=== PATIENT | female | born 1960 | race Caucasian/White ===

== ENCOUNTER 2016-06-10 12:41 | Emergency (ER) | payer BC ==
[2016-06-10 13:35] LABS: BASOPHILS 0.5 % (0.0-2.0); EOSINOPHILS 1.8 % (0-7); HEMATOCRIT 39.7 % (36.0-48.0); HEMOGLOBIN 13.5 g/dL (12-16); IMMATURE GRANULOCYTES 0.2 % (0-5); LYMPHOCYTES 25.1 % (15-50); MCH 30.8 pg (26.0-34.0); MCV 90.6 fL (80.0-100.0); MONOCYTES 6.6 % (2-11); NEUTROPHILS 65.8 % (40-80); PLATELET COUNT 312 10x3/uL (130-400); RBC 4.38 10x6/uL (4.00-5.40); RDW 12.7 % (11.5-14.5); WBC 6.1 10x3/uL (4.8-10.8)
[2016-06-10 13:40] LABS: ALBUMIN 3.7 g/dL (3.4-5.0); ALKALINE PHOSPHATASE 62 U/L (46-116); ALT (SGPT) 25 U/L (10-68); BILIRUBIN - TOTAL 0.45 mg/dL (0.2-1.3); CALC OSMOLALITY 288 mosm/kg (275-300); CALCIUM 9.1 mg/dL (8.5-10.1); CHLORIDE - SERUM 105 mmol/L (98-107); CREATININE - SERUM 0.9 mg/dL (0.6-1.3); GLUCOSE 106 mg/dL (74-106); PROTEIN - SERUM 6.8 g/dL (6.4-8.2); SODIUM 142 mmol/L (136-145); UREA NITROGEN 29 mg/dL (7-18); eGFR NON AFRICAN AMERICAN 69 mL/min (90-120)
[2016-06-10 13:51] LABS: CHOL - HDL RATIO 2.6 ratio (2.3-4.1); CHOLESTEROL, TOTAL 208 mg/dL (0-200); CKMB 0.8 U/L (0.0-3.6); CREATINE KINASE 69 UL (21-215); HDL CHOLESTEROL 80 mg/dL (32-96); LDL CHOLESTEROL 111 mg/dL (0-100); LDL-HDL RATIO 1.4 ratio (1.5-3.5); TRIGLYCERIDE 85 mg/dL (30-200)
[2016-06-10 13:52] LABS: TROPONIN-I < 0.017 ng/mL (0.000-0.060)
== END 2016-06-10 14:44 | disposition home or self-care (01) ==
LOC: D.ER 12:41
PROVIDERS: Emergency Medicine
DX: R00.2 Palpitations (principal); I45.10 Unspecified right bundle-branch block; I44.60 Unspecified fascicular block

== ENCOUNTER → 2016-09-16 16:43 | Outpatient (CLI) | payer MEDICAID | END | disposition home or self-care (01) | LOC: D.MAMMO 08:15 | DX: Z12.31 Encounter for screening mammogram for malignant neoplasm of breast (principal) ==

== ENCOUNTER 2017-10-30 08:00 | Outpatient (CLI) | payer MEDICAID | END 2017-10-30 09:00 | disposition home or self-care (01) | LOC: D.MAMMO 08:00 | DX: Z12.31 Encounter for screening mammogram for malignant neoplasm of breast (principal) ==

== ENCOUNTER → 2018-11-01 09:00 | Outpatient (CLI) | payer BC | END | disposition home or self-care (01) | LOC: D.MAMMO 09:00 | PROVIDERS: ATTEND Nurse Practitioner | DX: Z12.31 Encounter for screening mammogram for malignant neoplasm of breast (principal) ==

== ENCOUNTER 2018-11-28 08:42 | Observation (INO) | payer MEDICAID ==
[~2018-11-28] VITALS: Ht 154.9 cm; Wt 59.5 kg
--- NOTE | ~2018-11-28 | HEMODYNAMI ---
PATIENT:RASHAUN GALEANA MEDICAL RECORD: [id number] : 64 LOCATION:[facility] D.[address] [facility]# [id number] ADMISSION DATE: 11/28/18 Generatedon:11/29/201810:36 Patient name: RASHAUN GALEANA Patient #: [id number] : 1960 Date of study: 11/29/2018 Page: Of Hemodynamic Procedure Report Patient Data Patient Demographics Procedure consent was obtained First Name: RASHAUN Gender: Female Last Name: KERVIN : 1960 [facility] Initial: RACHEL Age: 58 year(s) Patient #: [id number] Race: SSN: [id number] Additional ID: [id number] Contact details Address: [address] [place] [address] State: [place] City: [facility] [place] Zip code: [address] Past Medical History Performed procedures and imaging results Date Procedure Procedure Results Comments Echocardiography Allergies: No known allergies Admission Admission Data Admission Date: 11/28/2018 Admission Time: 12:09 Arrival Date: 11/29/2018 Arrival Time: 0:00 Admit Source: Other Insurance Payor: Private Room #: D.[id number] health insurance [facility] #: [id number] Height (in.): 61 BSA: 1.58 (m2) Height (cm.): 154.94 BMI: 24.99 (kg/m2) Weight (lbs.): 132.28 Weight (kg.): 60 Current Diagnosis Diagnosis Description Stable angina Lab Results Lab Result Date: 11/29/2018 Lab Result Time: 0:00 Biochemistry Name Units Result Min Max BUN mg/dl 17 --(---*)-- 7 18 Creatinine mg/dl 0.9 --(-*--)-- 0.6 1.3 eGFR ml/min 69 *-(----)-- 90 120 NONAFRICAN Troponin l ng/ml 0.017 --(-*--)-- 0 0.06 CBC Name Units Result Min Max Hemoglobin g/dl 14.5 --(*---)-- 13.5 17.5 Platelets 10^3/l 286 --(--*-)-- 130 400 Procedure Procedure Types Cath Procedure Diagnostic Procedure LHC Coronaries only Aortic Root Angiography Sedation Charges Moderate Sedation up to 15 minutes Procedure Description Procedure Date Procedure Date: 11/29/2018 Procedure Start Time: 10:11 Procedure End Time: 10:34 Procedure Staff Name Function Leonidas Cannon MD Performing Physician Dipika Gonzalez RT Monitor Rodo Garcia RT Scrub Lisa Polk RT Scrub Gibson Santiago RN Nurse Indication Angina Dizziness Shortness of breath Procedure Data Cath Procedure Fluoroscopy Diagnostic fluoroscopy Total fluoroscopy Time: 6.8 time: 6.8 min min Diagnostic fluoroscopy Total fluoroscopy dose: 249 dose: 249 mGy mGy Contrast Material Contrast Material Type Amount (ml) Isovue 300 63 Entry Location Entry Primary Successful Side Size Upsize Upsize Entry Closure Succes sful Closure Location (Fr) 1 (Fr) 2 (Fr) Remarks Device Remarks Femoral Right 5 Fr Exoseal artery Estimated blood loss: 10 ml Diagnostic catheters Device Type Used For End Catheter Placement MULTIPACK JL 4.0 5Fr Procedure catheter MULTIPACK 3DRC 5Fr Procedure catheter MULTIPACK Pigtail 5 Fr Procedure catheter Procedure Complications No complications Procedure Medications Medication Administration Route Dosage 0.9% NaCl I.V. 100 ml/hr Oxygen etCO2 Nasal cannula 2 l/min Heparin Flush Bag added to field 2 bags (1000units/500ml NS) Lidocaine 2% added to field 20 Versed I.V. 2 mg Fentanyl I.V. 100 mcg Versed I.V. 1 mg Hemodynamics Rest BSA: 1.58 (m2) HGB: 14.5 (g/dl) O2 Consumption: Estimated: 147.33 (ml/min) O2 Co nsumption indexed: Estimated:93.25 (ml/min/m) Heart Rate: 63 (bpm) Snapshots Pre Cath Intra NCS Post Cath Vital Signs Time Heart Resp SPO2 etCO2 NIBP Rhythm Pain Sedation Rate (ipm) (%) (mmHg) (mmHg) Status Level (bpm) 9:32:37 69 16 94 0 90/54(71) NSR 0 (11) 10(A) , No pain 9:36:41 65 15 96 0 80/54(64) NSR 0 (11) 10(A) , No pain 9:40:41 64 15 99 32.4 97/52(73) NSR 0 (11) 10(A) , No pain 9:44:47 62 17 100 11.3 82/53(66) NSR 0 (11) 10(A) , No pain 9:48:46 74 17 100 42.9 93/57(80) NSR 0 (11) 10(A) , No pain 9:52:48 69 11 100 32.4 87/60(76) NSR 0 (11) 10(A) , No pain 9:56:51 69 16 98 0 79/51(60) NSR 0 (11) 10(A) , No pain 10:00:51 68 18 98 27.9 88/52(66) NSR 0 (11) 10(A) , No pain 10:04:55 64 10 98 39.2 91/52(73) NSR 0 (11) 10(A) , No pain 10:08:59 64 18 99 15 80/55(66) NSR 0 (11) 10(A) , No pain 10:12:58 66 12 100 11.3 90/53(68) NSR 0 (11) 10(A) , No pain 10:17:04 70 18 98 35.4 85/49(66) NSR 0 (11) 9(A) , No pain 10:21:06 72 18 99 39.2 86/53(68) NSR 0 (11) 9(A) , No pain 10:25:07 74 19 98 11.3 84/52(65) NSR 0 (11) 9(A) , No pain 10:29:09 71 18 99 9 79/52(62) NSR 0 (11) 10(A) , No pain 10:33:07 65 9 100 26.3 84/57(69) NSR 0 (11) 10(A) , No pain Medications Time Medication Route Dose Verified Delivered Reason Notes Eff ectiveness by by 9:32:00 0.9% NaCl I.V. 100 Gibson Gibson Per ml/hr Pamela Santiago physician DUSTIN RN 9:32:10 Oxygen etCO2 2 Gibson Gibson for low 02 Nasal l/min Pamela Santiago sats cannula RN RN 9:32:22 Heparin Flush added 2 Gibson Gibson used for Bag to bags Lorigan Lorigan procedure (1000units/500ml field RN RN NS) 9:32:35 Lidocaine 2% added 20ml Gibson Gibson for local to vial Lorigan Lorigan anesthetic field RN RN 10:10:41 Versed I.V. 2 mg Gibson Gibson for Lorigan Lorigan sedation RN RN 10:10:49 Fentanyl I.V. 100 Gibson Gibson for mcg Lorigan Lorigan sedation RN RN 10:13:02 Versed I.V. 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 9:13:50 Gibson Santiago RN sent for patient. Start room use. 9:13:51 Time tracking: Regular hours (M-F 7:00 - 5:00) 9:13:56 Plan of Care:Hemodynamics will remain stable., Cardiac rhythm will remain stable., Comfort level will be maintained., Respiratory function will remain adequate., Patient/ family verbilizes understanding of procedure., Procedure tolerated without complication., Recovers from procedure without complications.. 9:22:54 Patient received from Med II to CCL 1 Alert and oriented. Tansferred to table in Supine position. 9:22:55 Warm blankets applied, and deejay hugger turned on for patient comfort. 9:22:56 Correct patient and procedure confirmed by team. 9:24:56 Full Disclosure recording started 9:24:57 Pre-procedure instructions explained to patient. 9:24:58 Pre-op teaching completed and patient verbalized understanding. 9:25:00 Family in patients room. 9:25:02 Patient NPO since Midnight. 9:25:08 Patient allergic to No known allergies 9:25:11 Is patient on blood thinner?No 9:25:14 Patient diabetic? No. 9:25:16 Patient diabetic? No. 9:25:21 Patient not . Patient is over age 55. 9:31:32 ECG and BP/O2 sat monitors applied to patient. 9:31:33 Vital chart was started 9:31:35 Baseline sample Acquired. 9:31:38 Rhythm: sinus rhythm 9:31:50 Previous problem with sedation/anesthesia? No ? 9:31:51 Snore? Yes 9:31:52 Sleep apnea? No 9:31:53 Deviated septum? No 9:31:54 Opens mouth fully? Yes 9:31:54 Sticks out tongue? Yes 9:31:56 Airway obstruction? No ? 9:31:58 Dentures? No ? 9:32:00 0.9% NaCl 100 ml/hr I.V. was administered by Gibson Santiago RN; Per physician; 9:32:00 Pre procedure: right dorsailis pedis pulse 2+ Normal; easily identifiable; not easily obliterated 9:32:03 Patient pain scale 0/10 ?. 9:32:09 IV patent on arrival in right forearm with 0.9% NaCl at KVO. 9:32:10 Oxygen 2 l/min etCO2 Nasal cannula was administered by Gibson Santiago RN; for low 02 sats; 9:32:12 Lab results completed and on chart. 9:32:16 Right groin area was prepped with chlora-prep and draped in sterile fashion 9:32:17 Alarms reviewed by R. N. 9:32:18 Sharps counted by scrub and verified by R.N. 9:32:22 Heparin Flush Bag (1000units/500ml NS) 2 bags added to field was administered by Gibson Santiago RN; used for procedure; 9:32:35 Lidocaine 2% 20ml vial added to field was administered by Gibson Santiago RN; for local anesthetic; 9:34:00 Use device set Femoral Dx 9:34:01 ACIST Syringe (99881) opened to sterile field. 9:34:02 Bag Decanter (2001S) opened to sterile field. 9:34:03 ACIST Hand Control (70711) opened to sterile field. 9:34:03 ACIST Manifold (58243) opened to sterile field. 9:34:04 Tegaderm 4 x 4 (1626W) opened to sterile field. 9:34:07 Medline Cath Pack ([id number]) opened to sterile field. 9:34:09 DIAGNOSTIC Multipack 5Fr catheter set (IO6294) opened to sterile field. 9:34:10 SHEATH 5FR Gilbert (VNZ452) opened to sterile field. 9:34:11 EMERALD Guide Wire (017-728) opened to sterile field. 9:44:42 Diagnostic Cath Status : Urgent 9:44:43 PCI Cath Status : Urgent 9:45:39 Indication : Angina 9:45:51 Indication : Dizziness 9:46:03 Indication : Shortness of breath 9:56:56 Zero performed for pressure channel P1 10:06:42 --------ALL STOP TIME OUT------ 10:06:42 Final Timeout: patient, procedure, and site verified with staff and physician. All members of the team are in agreement. 10:06:51 Right groin site verified by team. 10:06:54 Fire Safety Assessment: A--An alcohol-based skin anteseptic being used preoperatively., C--Open oxygen or nitrous oxide is being used., D--An ESU, laser, or fiber-optic light is being used. 10:07:04 Physical assessment completed. ASA score P 2 - A patient with mild systemic disease as per Leonidas Cannon MD. 10:07:14 2) 60-89 Mildly reduced kidney function, and other findings (as for stage 1) point to kidney disease. 10:07:17 Maximum allowable contrast dose (3.7 X eGFR X 0.75)191 ml. 10:07:20 Sedation plan: IV Moderate Sedation Medication:Versed, Fentanyl 10:10:41 Versed 2 mg I.V. was administered by Gibson Santiago RN; for sedation; 10:10:49 Fentanyl 100 mcg I.V. was administered by Gibson Santiago RN; for sedation; 10:11:28 Procedure started. 10:11:46 Local anesthetic to right femoral artery with Lidocaine 2% by Leonidas Cannon MD.INITIAL ACCESS ONLY 10:13:02 Versed 1 mg I.V. was administered by Gibson Santiago RN; for sedation; 10:14:36 Zero performed for pressure channel P1 10:14:57 A 5 Fr sheath was inserted into the Right Femoral artery 10:15:29 A MULTIPACK JL 4.0 5Fr catheter was advanced over the wire and used for Procedure. 10:17:09 LCA angiography performed. 10:17:53 Catheter exchanged over wire. 10:19:32 A MULTIPACK 3DRC 5Fr catheter was advanced over the wire and used for Procedure. 10:20:48 RCA angiography performed. 10:21:08 Catheter exchanged over wire. 10:22:05 A MULTIPACK Pigtail 5 Fr catheter was advanced over the wire and used for Procedure. 10:22:08 LV gram done using EMMANUEL 10:24:08 Aortic Root visualized 10:26:09 Catheter exchanged over wire. 10:26:55 GUIDE 6FR AL 1.0 catheter ([id number]) opened to sterile field. 10:27:46 BENTSON 260 wire ([id number]) opened to sterile field. 10:28:34 JWIRE EXCHANGED FOR BENTSON WIRE TO CROSS VALVE 10:31:30 UNABLE TO CROSS VALVE 10:31:31 Catheter removed. 10:31:45 EXOSEAL 5Fr (EX500) opened to sterile field. 10:32:13 Sheath removed intact; hemostasis achieved with Exoseal to the Right Femoral artery. 10:32:18 Procedure ended.(Physican Out) 10:32:28 Fluoroscopy time 06.80 minutes. 10:32:35 Fluoroscopy dose: 249 mGy 10:32:35 Flurop Dose total: 249 10:32:38 Contrast amount:Isovue 300 63ml. 10:32:42 Maximum allowable dose exceeded? No. 10:32:42 Sharps counted by scrub and verified by R.N. 10:32:45 Post-op/insertion site Right Femoral artery dressed using a 4 x 4 and Tegaderm. 10:32:47 Post-procedure physical assessment completed. ASA score P 2 - A patient with mild systemic disease as per Leonidas Cannon MD. 10:32:50 Post procedure rhythm: sinus rhythm 10:32:53 Estimated blood loss: 10 ml 10:32:55 Post procedure instruction explained to patient.Patient verbalizes understanding. 10:32:55 Patient needs reinforcement of post procedure teaching. 10:33:34 Procedure type changed to Cath procedure, Diagnostic procedure, LHC, Coronaries only, Aortic Root Angiography, Sedation Charges, Moderate Sedation up to 15 minutes 10:33:52 Procedure and supply charges have been captured, reviewed, submitted and are correct. 10:33:54 Procedure Complication : No complications 10:34:17 Vital chart was stopped 10:34:17 See physician's report for complete and final results. 10:34:19 Report given to [facility] II. 10:34:21 Patient transfered to Med II with Bed. 10:34:23 Procedure ended. 10:34:23 Full Disclosure recording stopped 10:34:27 End room use (Document Last) Device Usage Item Name Manufacture Quantity Catalog Hospital Part Current Minimal L ot# / Number Charge Number Stock Stock Serial# Code ACIST Acist 1 26001 162158 096017 [id number] 20 Syringe Medical (19091) Systems Inc Bag Microtek 1 392929 56269 760251 5 Decanter Medical Inc. () ACIST Hand Acist 1 17000 882794 175040 593062 5 Control Medical (53984) Systems Inc ACIST Acist 1 31377 462121 265290 753001 5 Manifold Medical (34184) Systems Inc Tegaderm 4 3M 1 1626W 869586 968797 713015 5 x 4 (1626W) Medline Medline 1 [id number] 283894 77757 174440 5 Cath Pack ([id number]) DIAGNOSTIC Cardinal 1 MQ9888 360494 34627 501752 30 Multipack Health 5Fr catheter set (EJ1621) SHEATH 5FR Terumo 1 YZX889 811749 826057 986767 5 Gilbert (GAI715) EMERALD Cardinal 1 502-455 214321 990142 886216 5 Guide Wire Health (502-455) MULTIPACK Cardinal 1 343936 5 JL 4.0 5Fr Health catheter MULTIPACK Cardinal 1 867480 5 3DRC 5Fr Health catheter MULTIPACK Cardinal 1 140509 5 Pigtail 5 Health Fr catheter GUIDE 6FR Medtronic 1 [id number] 242658 61785 083043 1 AL 1.0 catheter (AP4CK04) SAUL 260 [place] Medical 1 F39457 361472 505845 495775 5 wire (K91185) EXOSEAL 5Fr Cardinal 1 EX500 467990 029116 165916 10 (EX500) Health Signature Audit [place] Stage Time Signature Unsigned Intra-Procedure 11/29/2018 Dipika Gonzalez 10:36:33 AM RT(R) Signatures Performing Physician : Signature : Leonidas Cannon MD Date : Time : Monitor : Dipika Gonzalez Signature : RT Date : Time : Nurse : Gibson Santiago Signature : RN Date : Time : [address] [address]
[2018-11-28 09:37] LABS: BASOPHILS 0.4 % (0-2); HEMATOCRIT 41.2 % (36.0-48.0); HEMOGLOBIN 14.5 g/dL (12-16); IMMATURE GRANULOCYTES 0.2 % (0-5); LYMPHOCYTES 32.8 % (15-50); MCHC 35.2 g/dL (31.0-37.0); MCV 88.2 fL (80.0-100.0); MEAN PLATELET VOLUME 11.3 fL (7.4-10.4); MONOCYTES 6.6 % (2-11); PLATELET COUNT 286 10x3/uL (130-400); RBC 4.67 10x6/uL (4.00-5.40); WBC 5.6 10x3/uL (4.8-10.8)
[2018-11-28 09:45] LABS: APTT 33.8 SECONDS (22.8-39.4); INR 1.05 (0.85-1.17); PROTIME 13.2 SECONDS (11.6-15.0)
[2018-11-28 10:04] LABS: ALBUMIN 3.5 g/dL (3.4-5.0); ALKALINE PHOSPHATASE 74 U/L (46-116); ALT (SGPT) 29 U/L (10-68); BILIRUBIN - TOTAL 0.65 mg/dL (0.2-1.3); CALC OSMOLALITY 282 mosm/kg (275-300); CALCIUM 8.8 mg/dL (8.5-10.1); CARBON DIOXIDE 31.3 mmol/L (21.0-32.0); CHLORIDE - SERUM 105 mmol/L (98-107); CREATININE - SERUM 0.9 mg/dL (0.6-1.3); GLUCOSE 97 mg/dL (74-106); POTASSIUM - SERUM 4.1 mmol/L (3.5-5.1); PROTEIN - SERUM 6.7 g/dL (6.4-8.2); SODIUM 141 mmol/L (136-145); UREA NITROGEN 17 mg/dL (7-18); eGFR NON AFRICAN AMERICAN 69 mL/min (90-120)
[2018-11-28 10:14] LABS: LIPASE 162 U/L (73-393); MAGNESIUM - SERUM 1.9 mg/dL (1.8-2.4); PRO BNP 367 pg/mL (0-125); THYROID STIMULATING HORMONE 5.37 uIU/mL (0.36-3.74); TROPONIN-I < 0.017 ng/mL (0.000-0.060)
[2018-11-28 10:35] VITALS: BP 93/62
--- NOTE | 2018-11-28 10:36 | NUR ---
NO NITRO GIVEN DUE TO LOW BP. PT HAS HX OF HYPOTENSION.
[2018-11-28 11:32] VITALS: BP 91/61
--- NOTE | 2018-11-28 12:25 | NUR ---
TRANSFER FROM ER BY W/C. OBDULIOINTED TO ROOM. CALL LIGHT IN REACH. WILL CONT. PLAN OF CARE.
[2018-11-28 12:47] VITALS: BP 91/61; BMI 24.8
--- NOTE | 2018-11-28 14:11 | NUR ---
BILAT SCDS ON ORDERED.
[2018-11-28 15:33] VITALS: Ht 154.9 cm; Wt 59.5 kg
[2018-11-28 16:00] VITALS: BP 106/61
--- NOTE | 2018-11-28 17:07 | NUR ---
CONSENTS SIGNED FOR [facility]. WILL CONT. PLAN OF CARE.
--- NOTE | 2018-11-28 19:30 | NUR ---
RESUMING PATIENT CARE. PATIENT IS ALERT AND ORIENTED, RESTING COMFORTABLY IN BED. RESPIRATIONS ARE EVEN AND UNLABORED. NO S/S OF DISTRESS. NO C/O PAIN. PAIN. DENIES NEEDS. CALL LIGHT WITHIN REACH. WILL CPOC.
[2018-11-28 20:00] VITALS: BP 91/56
[2018-11-29] VITALS: BP 96/58
[2018-11-29 04:30] VITALS: BP 101/73
[2018-11-29 05:27] LABS: BASOPHILS 0.7 % (0-2); EOSINOPHILS 2.2 % (0-7); HEMATOCRIT 40.9 % (36.0-48.0); HEMOGLOBIN 13.9 g/dL (12-16); LYMPHOCYTES 43.2 % (15-50); MCH 30.5 pg (26.0-34.0); MCV 89.7 fL (80.0-100.0); MEAN PLATELET VOLUME 11.2 fL (7.4-10.4); MONOCYTES 7.3 % (2-11); NEUTROPHILS 46.6 % (40-80); PLATELET COUNT 259 10x3/uL (130-400); RBC 4.56 10x6/uL (4.00-5.40); RDW 13.1 % (11.5-14.5); WBC 5.4 10x3/uL (4.8-10.8)
[2018-11-29 05:36] LABS: ANION GAP 7.6 mmol/L (8-16); CALCIUM 8.7 mg/dL (8.5-10.1); CARBON DIOXIDE 32.5 mmol/L (21.0-32.0); CREATININE - SERUM 0.9 mg/dL (0.6-1.3); POTASSIUM - SERUM 4.1 mmol/L (3.5-5.1)
[2018-11-29 08:32] VITALS: BP 94/55
--- NOTE | 2018-11-29 09:19 | NUR ---
PRE-OPS GIVEN. TO CARE REP BY BED.
--- NOTE | 2018-11-29 10:55 | NUR ---
BACK FROM IT INFRASTRUCTURE ENGINEER. VS WNL. RIGHT GROIN STABLE WITHOUT BLEEDING OR HEMATOMA NOTED. WILL MONITOR.
[2018-11-29 11:50] VITALS: BP 103/61
--- NOTE | 2018-11-29 12:45 | NUR ---
BED REST UP. GROIN STABLE.
[2018-11-29] MEDS ORDERED: XANAX0.25 MG PO (14:19)
[2018-11-29] MEDS ORDERED: HYDROXYZINE HCL50 MG PO (14:34)
--- NOTE | 2018-11-29 15:11 | MORECARE ---
CASE MANAGEMENT DISCHARGE SUMMARY PATIENT: RASHAUN GALEANA ANN UNIT: [id number] ADM DATE: 11/28/18 AGE: 58 : [birth year] SEX: F ROOM/BED: D.[facility] AUTHOR: RODDY BALDERAS PHYSICIAN: REFERRING PHYSICIAN: SIDRA BERRY MD DATE OF SERVICE: 11/29/18 Discharge Plan Patient Name: RASHAUN GALEANA [facility] [facility] 1960 Planned Disposition: Home Anticipated Discharge Date: 11/29/18 Discharge Date: Expected LOS: 1 Initial Reviewer: [email or web address] Initial Review Date: 11/29/2018 Generated: 11/29/18 4:11 pm Patient Name: RASHAUN GALEANA Page 65544 at 1511 All edits/amendments must be made on the electronic document DICTATION DATE: 11/29/181509 WARP TRUCKER: NATACHA 11/29/18 1510 RPT#: [id number] DC DATE: STATUS: ADM IN [facility] [address] [place] [address] END OF REPORT
--- NOTE | 2018-11-29 15:21 | NUR ---
IV AND TELEMETRY DCD. DC PLANS GIVEN. UNDERSTANDING VOICED. [facility] WITH DAUGHTER.
== END 2018-11-29 15:22 | disposition home or self-care (01) ==
LOC: D.ER 08:42 → OBSVTIME 12:09 → D.M2 12:09
PROVIDERS: Family Medicine; ADMIT Family Medicine; ATTEND Family Medicine
DX: I35.0 Nonrheumatic aortic (valve) stenosis (principal); R60.0 Localized edema; R07.9 Chest pain, unspecified; I95.9 Hypotension, unspecified; Z87.891 Personal history of nicotine dependence

== ENCOUNTER 2018-12-04 11:02 | Inpatient (IN) | payer MEDICAID ==
[~2018-12-04] VITALS: Ht 154.9 cm; Wt 64.5 kg
--- NOTE | ~2018-12-04 | OP ---
PATIENT NAME: RASHAUN GALEANA MEDICAL RECORD: [id number] :64 [facility] ADMISSION DATE:12/07/18 SURGEON: VIKTOR AN MD DATE OF OPERATION: 12/07/2018 SURGEON: Viktor An MD CODING COORDINATOR: Zaki Stanton MD PROCEDURE PERFORMED: Aortic valve replacement (19 mm pericardial bioprosthesis). PREOPERATIVE DIAGNOSIS: Aortic stenosis. POSTOPERATIVE DIAGNOSES: Bicuspid aortic valve with aortic stenosis and some aortic insufficiency. ANESTHESIA: General endotracheal anesthesia. ESTIMATED BLOOD LOSS: Total cardiopulmonary bypass with Cell Saver retransfusion. COMPLICATIONS: None. SPECIMENS: Valve leaflets. CONDITION: Stable. DISPOSITION: ICU. OPERATIVE FINDINGS: Congenitally bicuspid aortic valve with fusion and a significantly narrowed orifice without leaflet approximation due to calcification. The valve seated well and transesophageal echocardiography confirmed no perivalvular leak. The orientation of the coronary ostia was normal and the valve posts did not obstruct the coronary flow. OPERATIVE INDICATION: Aortic stenosis. DESCRIPTION OF PROCEDURE: The patient was brought to the operating suite. General anesthesia was obtained, the patient was prepped and draped. Midline incision was made well below the sternal notch. The sternum was opened. Hemostasis was ensured. The pericardium was opened. Heparin was given. The aorta was cannulated. Dual stage venous cannula was inserted. Retrograde cardioplegia cannula was inserted. The patient was placed on cardiopulmonary bypass. The patient was cooled. Crossclamp was placed. Retrograde cardioplegia was given as well as antegrade cardioplegia through an angiocatheter directly into the ascending aorta. Left ventricular vent was placed likely just into the left atrium. A transverse aortotomy was performed. The valve was visualized. Leaflets were removed, fully debrided. Thorough irrigation was undertaken. The valve was sized. Pledgeted valve sutures were placed from ventricular to the aortic side and through the valve sewing ring. The valve was carefully lowered in place. Sutures were individually tied. There was no evidence of perivalvular leak. In inspecting through the valve, there was no subvalvular obstruction. The aortotomy was then closed and with the patient in Trendelenburg position, the aorta was de-aired, cross clamp OPERATIVE REPORT [id number] RASHAUN GALEANA removed, antegrade cardioplegia site oversewn. Left ventricular vent removed. Retrograde cardioplegic cannula site removed and oversewn. The patient resumed a spontaneous rhythm, fully rewarmed, weaned from cardiopulmonary bypass and was stable. The patient was decannulated. The cannula sites were oversewn. Protamine was given. Thorough irrigation was undertaken. Hemostasis was assured. Drains were placed in the mediastinum. The Pericardial fat was loosely reapproximated in the midline. Sternum was closed over wires. Fascia was closed. Subcutaneous tissue was closed. Skin was closed. Dermabond was placed. The needle and sponge counts reported as correct and the patient was taken to ICU in stable condition. TRANSINT:[id number] Voice Confirmation ID: [id number] DOCUMENT ID: [id number] VIKTOR AN MD CC: JAYCEE ZABALA M.D. and SIDRA BERRY MD [id number] DICTATION DATE: 12/14/18 1146 FILING OR REGISTRY CLERK: 12/14/18 1217 DIS IN 12/12/18 [facility] [address] [place] [address]
[~2018-12-04 11:02] MED LIST: HYDROXYZINE HCL50 MG PO; XANAX0.25 MG PO
[2018-12-05 09:09] LABS: INR 1.01 (0.85-1.17); PROTIME 12.8 SECONDS (11.6-15.0)
[2018-12-05 09:10] LABS: APPEARANCE CLEAR (CLEAR); BILIRUBIN NEGATIVE (NEGATIVE); COLOR YELLOW (YELLOW); GLUCOSE NEGATIVE (NEGATIVE); KETONE NEGATIVE (NEGATIVE); NITRITE NEGATIVE (NEGATIVE); PROTEIN NEGATIVE (NEGATIVE); SPECIFIC GRAVITY 1.005 (1.005-1.020); UROBILINOGEN NORMAL (NORMAL)
[2018-12-05 09:22] LABS: ALBUMIN 3.8 g/dL (3.4-5.0); ANION GAP 8.3 mmol/L (8-16); BILIRUBIN - TOTAL 0.6 mg/dL (0.2-1.3); CALCIUM 9.2 mg/dL (8.5-10.1); CARBON DIOXIDE 33.9 mmol/L (21.0-32.0); CREATININE - SERUM 0.9 mg/dL (0.6-1.3); PHOSPHOROUS 3.9 mg/dL (2.5-4.9); POTASSIUM - SERUM 4.2 mmol/L (3.5-5.1); PROTEIN - SERUM 7.5 g/dL (6.4-8.2); T4 THYROXIN - FREE 0.98 ng/dL (0.76-1.46); THYROID STIMULATING HORMONE 6.91 uIU/mL (0.36-3.74); URIC ACID 4.7 mg/dL (2.6-7.2)
[2018-12-05] MEDS ORDERED: FLINTSTONES WIT18 MG PO (09:23)
[2018-12-05] MEDS ORDERED: MAGNESIUM OXID250 MG PO (09:23)
[2018-12-05 09:28] LABS: BASOPHILS 0.6 % (0-2); EOSINOPHILS 1.8 % (0-7); HEMATOCRIT 42.7 % (36.0-48.0); HEMOGLOBIN 14.9 g/dL (12-16); IMMATURE GRANULOCYTES 0.2 % (0-5); LYMPHOCYTES 33.1 % (15-50); MCHC 34.9 g/dL (31.0-37.0); MEAN PLATELET VOLUME 11.5 fL (7.4-10.4); MONOCYTES 6.1 % (2-11); NEUTROPHILS 58.2 % (40-80); PLATELET COUNT 282 10x3/uL (130-400); RDW 12.8 % (11.5-14.5); WBC 5.4 10x3/uL (4.8-10.8)
[2018-12-07] VITALS (50 sets, daily range): BP systolic 86–123; BP diastolic 41–70; BMI 24.2
[2018-12-07 11:52] LABS: INR 1.58 (0.85-1.17); PROTIME 18.2 SECONDS (11.6-15.0)
--- NOTE | 2018-12-07 12:10 | NUR ---
1210: REC'D TO ROOM VIA BED. #8 OETT PATENT. CONNECT TO VENT AND MONITOR. SEE FLOWSHEET FOR COMPLETE ASSESSMENT.
--- NOTE | 2018-12-07 15:12 | NUR ---
1230: DR. AN AT BEDSIDE. INFORMED OF AIR LEAK NOTED TO MEDISTINAL CHEST TUBES. RESULTS OF ABGS GIVEN. ORDERS REC'D FOR MG++ K+ AND ONE AMP NAHCO3. 1250: CONDITION UPDATE GIVEN TO DR. AN. 0RDERS REC'D FOR NS BOLUS TO BE GIVEN OVER 2 HOURS. 1400: DR. AN GIVEN CONDITION UPDATE. ORDERS REC'D FOR 1/2 AMP CACL AND TO INFUSE NS RAPIDLY
--- NOTE | 2018-12-07 17:02 | NUR ---
1605: EXTUBATED AND PLACED ON O2 VIA NC @ 4 LPM 1615: JOSHUA BEAVER'[place] PER POLICY. 1630: FAMILY AT BEDSIDE.
--- NOTE | 2018-12-07 17:41 | NUR ---
ASSUMED COMPLETE CARE OF PT-AWAKE AND ALERT-SR ON MONITOR-VERBALLY APPROPRIATE DAMIAN=WEAK-R JUGULAR IN PLACE
--- NOTE | 2018-12-07 18:03 | NUR ---
PT APPEARS ASLEEP
--- NOTE | 2018-12-07 19:00 | NUR ---
REPORT RECEIVED, SHIFT ASSESSMENT COMPLETE SEE FLOW SHEET, PT AAOx4, NSR ON CM, VSS, CT TO 20CM SUCTION, NO AIR LEAK NOTED, DANGLED ON BEDSIDE PER ORDERS WITH ASSIST FROM CODE OFFICIAL, PT TOLLERATED MOVEMENT WELL, NO ACUTE S/S OF DISTRESS, REPOSITIONED FOR COMFORT BACK IN BED BED, VSS, WILL CONTINUE TO MONITOR
--- NOTE | 2018-12-07 23:00 | NUR ---
REASSESSMENT COMPLETE SEE FLOW SHEET, NO ACUTE CHANGES NOTED, DANGLED AT BEDSIDE PER ORDERS, PT TOLLERATED WELL WITH NO S/S OF DISTRESS NOTED, REPOSITIONED FOR COMFORT BACK IN BED, VSS, NSR ON CM, WILL CONTINUE TO MONITOR
[2018-12-08] VITALS (31 sets, daily range): BP systolic 95–113; BP diastolic 48–69
--- NOTE | 2018-12-08 03:00 | NUR ---
REASSESSMENT COMPLETE PER FLOW SHEET, NO ACUTE CHANGES NOTED, CHG BATH WITH COMPLETE LINEN CHANGE, PT OOB TO CHAIR WITH ASSIST, PT REPOSITIONED FOR COMFORT, VSS, PT DENIES NEEDS AT THIS TIME, WILL CONTINUE TO MONITOR
[2018-12-08 05:47] LABS: HEMATOCRIT 32.6 % (36.0-48.0); HEMOGLOBIN 11.3 g/dL (12-16); MCH 30.5 pg (26.0-34.0); MCHC 34.7 g/dL (31.0-37.0); MCV 88.1 fL (80.0-100.0); MEAN PLATELET VOLUME 11.1 fL (7.4-10.4); RBC 3.7 10x6/uL (4.00-5.40); RDW 13.1 % (11.5-14.5); WBC 12.4 10x3/uL (4.8-10.8)
[2018-12-08 06:01] LABS: ALBUMIN 2.7 g/dL (3.4-5.0); ANION GAP 14.6 mmol/L (8-16); BILIRUBIN - TOTAL 0.65 mg/dL (0.2-1.3); CALCIUM 7.6 mg/dL (8.5-10.1); CARBON DIOXIDE 23.5 mmol/L (21.0-32.0); CREATININE - SERUM 0.9 mg/dL (0.6-1.3); MAGNESIUM - SERUM 2.2 mg/dL (1.8-2.4); POTASSIUM - SERUM 5.1 mmol/L (3.5-5.1); PROTEIN - SERUM 5.1 g/dL (6.4-8.2)
--- NOTE | 2018-12-08 12:41 | NUR ---
0715-RECIEVED AWAKE AND ALERT AND SITTING UP IN CHAIR-PT RATES PAIN AT 0700-NOTED RECIEVED PAIN MEDICINE AT 0610-ENCOURAGED TO USE PILLOW FOR SPLINTING WHEN MOVING 0900-CONTINUE TO RATE PAIN 11/14-BURNING AND PRESSURE-MORPHINE 2MG IV GIVEN 1015-PT EXPRESSES LITTLE PAIN RELIEF-NOT ABLE TO PARTICIPATE WITH INCENTIVE "HURTS TOO MUCH"-OXYCODONE 10MG PO GIVEN 1030-DR MELENDEZ AT BEDSIDE-STATUS REPORT GIVEN -PLASMALYTE DECREASED TO 30ML/H PT STRESSED PAIN LEVEL HIGH-CONTINUE WITH CURRENT PAIN MANAGEMENT 1050-ASSISTED PT TO BED-CRIED OUT -STATED EXCRUCIATING-TO INCISION "WORSE" YET MORPHINE 2MG IVP GIVEN 1215-PT CALLED AND REQUESTED PAIN MEDICINE FOR 11/14-MORPHINE 2MG IVP GIVEN
--- NOTE | 2018-12-08 13:49 | NUR ---
1300-REQUESTING PAIN PILL AT THIS TIME-NOTED GIVEN 3HR AGO-REQUESTING MORPHINE NOTED 2MG 45MIN AGO
--- NOTE | 2018-12-08 16:56 | NUR ---
PT O2 SAT 89-ENCOURAGED DB AND COUGHING -POOR EFFORT-O2 AT 2 L
--- NOTE | 2018-12-08 17:23 | NUR ---
O2SAT 98-REMOVED O2 TO ROOM AIR-C/O SEVERE NAUSEA-ZOFRAN GIVEN ORDERED
--- NOTE | 2018-12-08 19:00 | NUR ---
SHIFT ASSESSMENT COMPLETE. ALERT AND ORIENTED X4. RESPIRATIONS EVEN AND UNLABORED. VS STABLE. NO VISUAL CUES OF DISTRESS NOTED. WILL CONTINUE TO MONITOR.
[2018-12-09] VITALS (24 sets, daily range): BP systolic 90–115; BP diastolic 56–82
[2018-12-09 05:44] LABS: HEMATOCRIT 32.1 % (36.0-48.0); HEMOGLOBIN 11.5 g/dL (12-16); MCH 31.2 pg (26.0-34.0); MCHC 35.8 g/dL (31.0-37.0); MEAN PLATELET VOLUME 11.7 fL (7.4-10.4); RBC 3.69 10x6/uL (4.00-5.40); RDW 12.8 % (11.5-14.5); WBC 10.3 10x3/uL (4.8-10.8)
[2018-12-09 05:49] LABS: ALBUMIN 2.6 g/dL (3.4-5.0); BILIRUBIN - TOTAL 0.62 mg/dL (0.2-1.3); CALCIUM 7.9 mg/dL (8.5-10.1); CARBON DIOXIDE 26.8 mmol/L (21.0-32.0); CREATININE - SERUM 0.9 mg/dL (0.6-1.3); POTASSIUM - SERUM 4.8 mmol/L (3.5-5.1); PROTEIN - SERUM 5.4 g/dL (6.4-8.2)
[2018-12-09 05:52] LABS: MAGNESIUM - SERUM 1.6 mg/dL (1.8-2.4); PHOSPHOROUS 2.9 mg/dL (2.5-4.9)
--- NOTE | 2018-12-09 10:19 | NUR ---
0715-RECIEVED AWAKE AND ALERT-UP IN CHAIR-REPOSITIONED PT BY ENCOURAGING TO STAND UP AND ADJUST SELF-SEE EMAR FOR PAIN MANAGEMENT 0813-C/O HICCUPS-USED WARM WATER -C/O NAUSEA-ZOFRAN 4MG IVP GIVEN
--- NOTE | 2018-12-09 15:09 | NUR ---
1210-DR MELENDEZ AT BEDSIDE-ASSISTED PT TO BED -VERSED 1MG IVP GIVEN BY DR MELENDEZ-KHUSHBOO 2-RR 16-O2 AT 2L PLACED ON PT-SAT 96%-CHEST TUBES REMOVED BY DR MELENDEZ-TOLERATED WELL BY PT-DRG CHANGED TO PACER WIRES AND DATED-PT CONVERSING EASILY-SAT 100%-RR 16-BED ALARM TURNED ON 1315-AMBULATED WITH PHYSICAL THERAPY 1500-RESTING QUIETLY IN BED-SR ON MONITOR
--- NOTE | 2018-12-09 17:57 | NUR ---
NOTED O2SAT 86%-PT STATED COUGHING AT THIS TIME-ENCOURAGED INCREASE USE OF SPIROMETRY-O2 AT 2L PLACED
--- NOTE | 2018-12-09 19:06 | NUR ---
BEDSIDE SHIFT REPORT GIVEN BY DEPARTING RN. PT LAYING IN BED WATCHING TV. AAOX4. PERRLA. VSS. 2L NC WITH O2 SAT 97%. WEANED DOWN TO 1L. ALL DRESSING C.D.I. DENIES ANY PAIN OR NEEDS. FRESH ICE WATER PROVIDED. SAFETY MEASURES IN PLACE. CBIR.
--- NOTE | 2018-12-09 21:02 | NUR ---
HS MEDS GIVEN. SWALLOWED ALL PO MEDS WITHOUT DIFFICULTY. FRESH ICE WATER PROVIDED.
--- NOTE | 2018-12-09 23:38 | NUR ---
REASSESSMENT COMPELTE. NO NEW CHANGES NOTED IN PT CONDITION. ASLEEP SHOWING NO SS OF DISTRESS. VSS. DENIES ANY NEEDS AT THIS TIME. SAFETY MEASURES IN PLACE. CBIR.
[2018-12-10] VITALS (23 sets, daily range): BP systolic 90–118; BP diastolic 51–78; Ht 154.9 cm; Wt 64.5 kg
--- NOTE | 2018-12-10 01:31 | NUR ---
PRN PAIN MED GIVEN. SEE MAR FOR DETAILS.
--- NOTE | 2018-12-10 03:19 | NUR ---
REASSESSMENT COMPLETE. NO NEW CHANGES NOTED. NO SS OF DISTRESS. VSS. CHG BATH GIVEN. LINENS CHANGED. TOLERATED WELL.
--- NOTE | 2018-12-10 06:04 | NUR ---
LAB AT BEDSIDE
--- NOTE | 2018-12-10 06:28 | NUR ---
OOB TO BATHROOM USING STANDBY ASSIST. ONE VOID NOTED.
[2018-12-10 06:39] LABS: HEMATOCRIT 29.3 % (36.0-48.0); HEMOGLOBIN 10.2 g/dL (12-16); MCH 30.2 pg (26.0-34.0); MCHC 34.8 g/dL (31.0-37.0); MCV 86.7 fL (80.0-100.0); MEAN PLATELET VOLUME 11.3 fL (7.4-10.4); RBC 3.38 10x6/uL (4.00-5.40); RDW 12.8 % (11.5-14.5); WBC 8.8 10x3/uL (4.8-10.8)
[2018-12-10 07:02] LABS: ALBUMIN 2.3 g/dL (3.4-5.0); ALKALINE PHOSPHATASE 61 U/L (46-116); ALT (SGPT) 19 U/L (10-68); BILIRUBIN - TOTAL 0.49 mg/dL (0.2-1.3); CALC OSMOLALITY 255 mosm/kg (275-300); CARBON DIOXIDE 28.8 mmol/L (21.0-32.0); CHLORIDE - SERUM 94 mmol/L (98-107); CREATININE - SERUM 0.7 mg/dL (0.6-1.3); GLUCOSE 117 mg/dL (74-106); MAGNESIUM - SERUM 1.9 mg/dL (1.8-2.4); PHOSPHOROUS 2.4 mg/dL (2.5-4.9); POTASSIUM - SERUM 4.3 mmol/L (3.5-5.1); PROTEIN - SERUM 5.4 g/dL (6.4-8.2); SODIUM 127 mmol/L (136-145); UREA NITROGEN 12 mg/dL (7-18); eGFR NON AFRICAN AMERICAN > 90 mL/min (90-120)
--- NOTE | 2018-12-10 09:15 | NUR ---
MORNING MEDICATIONS HAVE BEEN PROVIDED. PT HAS BEEN UP TO WALK WITH PHYSICAL THERAPIST. NO DISTRESS.
--- NOTE | 2018-12-10 10:39 | NUR ---
PT NEEDING IV ACCESS FOR LASIX ADMINISTRATION. BECAME UPSET AND DIDN'T WANT IV. STARTING CRYING. SAID SHE "WANTS RONIT". LET HER KNOW THAT RONIT IS THE [employer]ETING [employer]PER[employer] INTERN AND CANNOT START IV'S. PRIMARY NURSE ATTEMPTED ACCESS X1. PT MOVED ARM AT TIME OF STICK, UNABLE TO GAIN ACCESS. 2ND NURSE ATTEMPTED ACCESS, IV STARTED IN LEFT AC. STICK X1.
--- NOTE | 2018-12-10 13:55 | NUR ---
PT UP AND WALKED WITH PHYSICAL THERAPIST. NO DISTRESS. 500FT
--- NOTE | 2018-12-10 16:57 | NUR ---
DINNER TRAY HAS BEEN PROVIDED. FAMILY AT BEDSIDE. PT DENIES NEEDS AT THIS TIME. CALL LIGHT IN REACH.
--- NOTE | 2018-12-10 17:55 | NUR ---
DR AN CAME BY AND SPOKE WITH PATIENT
--- NOTE | 2018-12-10 19:05 | NUR ---
PATIENT SLEEPING AND AROUSES TO VERBAL STIMULI. SHIFT ASSESSMENT COMPLETE. CALL LIGHT WITHIN REACH, BED IN LOW POSITION.
--- NOTE | 2018-12-10 20:38 | NUR ---
PATIENT UP TO BATHROOM VOIDED URINE. PATIENT SPO2 87-89% ON RA REPLACED O2 AT 1L/MIN VIA NC SPO2 INCREASED TO 94%. WILL CONTINUE TO MONITOR.
[2018-12-11] VITALS (26 sets, daily range): BP systolic 89–110; BP diastolic 49–68
[2018-12-11 06:51] LABS: HEMATOCRIT 30.1 % (36.0-48.0); HEMOGLOBIN 10.5 g/dL (12-16); MCH 30.4 pg (26.0-34.0); MCHC 34.9 g/dL (31.0-37.0); MCV 87.2 fL (80.0-100.0); MEAN PLATELET VOLUME 10.7 fL (7.4-10.4); RBC 3.45 10x6/uL (4.00-5.40); RDW 13.1 % (11.5-14.5); WBC 7.7 10x3/uL (4.8-10.8)
[2018-12-11 07:01] LABS: ALBUMIN 2.6 g/dL (3.4-5.0); ALKALINE PHOSPHATASE 85 U/L (46-116); ALT (SGPT) 24 U/L (10-68); BILIRUBIN - TOTAL 0.49 mg/dL (0.2-1.3); CALC OSMOLALITY 268 mosm/kg (275-300); CALCIUM 8.5 mg/dL (8.5-10.1); CARBON DIOXIDE 33.9 mmol/L (21.0-32.0); CHLORIDE - SERUM 97 mmol/L (98-107); CREATININE - SERUM 0.7 mg/dL (0.6-1.3); GLUCOSE 106 mg/dL (74-106); PHOSPHOROUS 2.8 mg/dL (2.5-4.9); POTASSIUM - SERUM 3.6 mmol/L (3.5-5.1); PROTEIN - SERUM 6.1 g/dL (6.4-8.2); SODIUM 135 mmol/L (136-145); UREA NITROGEN 9 mg/dL (7-18); eGFR NON AFRICAN AMERICAN > 90 mL/min (90-120)
--- NOTE | 2018-12-11 08:48 | NUR ---
0700 PT RECIEVED UP IN CHAIR ALERT AND OREINTED ON ROOM AIR VSS DENIES PAIN, LAC PIV SL, CONTINENT, DENIES ALL NEEDS, CALL LIGHT WITHIN REACH WILL CONTINUE TO MONITOR 0845 ASSISTED TO BED AND TPM WIRES REMOVED BY DR CARMONA NURSE COLLINS
--- NOTE | 2018-12-11 09:53 | TEE ---
PATIENT:RASHAUN GALEANA MEDICAL RECORD: [id number] LOCATION:[place] [address] AGE OF PATIENT: 58 ADMISSION DATE: 12/07/18 SEX: F REFERRING PHYSICIAN: INTERPRETING PHYSICIAN: KIMMIE HALL MD TRANSESOPHAGEAL ECHOCARDIOGRAM Date: 12/07/18 JOSE CHARGE Y INDICATIONS: AVR PREMEDICATIONS: PATIENT'S RESPONSE PROCEDURE DOPPLER MEASUREMENTS: LVIT LA 3.3 PA RA LVOT RVOT Asc. Ao AV Gradient Peak AV Mean AV Area MV Gradient Peak MV Mean MV Area INTERPRETATION: Doppler: 2-D: COLOR FLOW DOPPLER NORMAL SALINE STUDY: MISCELLANOUS: DIAGNOSIS: PLAN: Disaster Response Director:2 Dr. Cannon Staff Physical Therapist: Isaac HUNT COMMENTS: DATE OF SERVICE: 12/07/2018 PROCEDURE: Transesophageal echo evaluation of valvular structures during aortic valve replacement. FINDINGS: 1. Left ventricular chamber size is within normal limits. Left ventricular systolic function is normal. Overall ejection fraction estimated at 60%. 2. Left atrium, right atrium, and right ventricular chamber sizes are within TRANSESOPHAGEAL ECHOCARDIOGRAM REPORT [id number] RASHAUN GALEANA normal limits. 3. Valvular structures: Aortic valve demonstrates [id number] aortic stenosis; however, this is not a new finding. The patient is scheduled for aortic valve replacement. The remaining valvular structures have normal structure and motion. 4. Doppler interrogation elsewise reveals mild mitral regurgitation, mild tricuspid regurgitation, no other valvular insufficiency or stenosis. 5. No evidence of pericardial effusion or left ventricular thrombus. TRANSINT:[id number] Voice Confirmation ID: [id number] DOCUMENT ID: [id number] at 0953 CC: [id number] DICTATION DATE: 12/07/18 1411 SOFTWARE TOOLS ENGINEER: 12/08/18 0121 ADM IN [place] [address] [place] [address]
--- NOTE | 2018-12-11 17:06 | NUR ---
1100 AMBULATED IN HALLWAY 1300 ATE 75% LUNCH 1500 AMBULATED ON ROOM AIR, SPO2 DROPPED, PLACED BACK ON O2 WITH SPO2 RISING TO 90S, COLLINS CARMONA NURSE NOTIFIED WHO STATED TO NOTIFY CASE MANAGEMENT TO GET HOME O2, ALBERT WITH CASE MANAGEMENT NOTIFIED 1700 ATE 75% DINNER
--- NOTE | 2018-12-11 17:32 | MORECARE ---
CASE MANAGEMENT DISCHARGE SUMMARY PATIENT: RASHAUN GALEANA ANN UNIT: [id number] ADM DATE: 12/07/18 AGE: 58 : 64 SEX: F ROOM/BED: [facility] AUTHOR: RODDY BALDERAS PHYSICIAN: REFERRING PHYSICIAN: CATHERINE AN MD DATE OF SERVICE: 12/11/18 Discharge Plan Patient Name: RASHAUN GALEANA Facility: [facility]:[place] : 1960 Planned Disposition: Home or Self Care Anticipated Discharge Date: Discharge Date: Expected LOS: Initial Reviewer: [email or web address] Initial Review Date: 12/10/2018 Generated: 12/11/18 6:31 pm Patient Name: RASHAUN GALEANA Page [id number] at 1732 All edits/amendments must be made on the electronic document DICTATION DATE: 12/11/181730 GOLD BUYER: NATACHA 12/11/181730 RPT#: [id number] [place] DATE: STATUS: ADM IN [facility] [address] [place] [address] END OF REPORT
--- NOTE | 2018-12-11 17:40 | MORECARE ---
CASE MANAGEMENT DISCHARGE SUMMARY PATIENT: RASHAUN GALEANA ANN UNIT: [id number] ADM DATE: 12/07/18 AGE: 58 : 64 SEX: F [facility] AUTHOR: SHERRIE,DOC PHYSICIAN: REFERRING PHYSICIAN: CATHERINE AN MD DATE OF SERVICE: 12/11/18 Discharge Plan Patient Name: RASHAUN GALEANA Facility: [facility]:[place] : 1960 Planned Disposition: Home or Self Care Anticipated Discharge Date: Discharge Date: Expected LOS: Initial Reviewer: [email or web address] Initial Review Date: 12/10/2018 Generated: 12/11/18 6:40 pm Comments DCP- Discharge Planning Updated by [email or web address]: Jessenia Yoder on 12/11/18 4:[address] LATE ENTRY 12/10/18 @ 1630 Patient Name: RASHAUN GALEANA Admission Status: Elective Accout number: [id number] Admission Date: 12-07-2018 : 1960 Admission Diagnosis:NONRHEUMATIC AORTIC (VALVE) STENOSIS Attending: CATHERINE AN Current LOS: 4 Anticipated DC Date: Planned Disposition: Home or Self Care Primary Insurance: [place] [employer] [facility] Discharge Planning Comments: CM met with patient at bedside after explaining CM role and obtaining verbal consent. Patient lives at home alone and plans to return there upon discharge. Patient states that her daughter has taken off work to help her when discharged. Patient feels this would be a safe discharge. CM discussed availability / needs of home health and medical equipment. Patient denies any discharge needs at this time. Patient states she will have her daughter drive her home upon discharge. Patient will require qualifying ABG for home 02 if needed upon discharge d/t Medicaid guidelines. CM will continue to follow and assist as needed with discharge planning / needs. Talent Development Coordinator: Jessenia Yoder DCPIA - Discharge Planning Initial Assessment Updated by [email or web address]: Jessenia Yoder on 12/11/18 5:33 pm * Is the patient Alert and Oriented? Yes * How many steps to enter\exit or inside your home? * PCP [facility] * Pharmacy [facility] * Preadmission Environment Home Alone * ADLs Independent * Equipment None * List name and contact numbers for known caregivers / representatives who currently or will assist patient after discharge: ANDREW GALEANA - DAUGHTER- [phone] HARMAN SAENZ - DAUGHTER - [phone] * Verbal permission to speak to the caregivers and representatives has been obtained from the patient. Yes * Community resources currently utilized None * Additional services required to return to the preadmission environment? No * Can the patient safely return to the preadmission environment? Yes * Has this patient been hospitalized within the prior 30 days at any hospital? No Last DP export: 12/11/18 4:32 pm Patient Name: RASHAUN GALEANA Page [phone] at 1740 All edits/amendments must be made on the electronic document DICTATION DATE: 12/11/181738 BIODIESEL OPERATIONS MANAGER: NATACHA 12/11/181738 RPT#: [id number] [place] DATE: STATUS: ADM IN [facility] [address] [place] [address] END OF REPORT
[2018-12-12] VITALS (14 sets, daily range): BP systolic 95–117; BP diastolic 49–64
[2018-12-12 06:36] LABS: HEMATOCRIT 30.2 % (36.0-48.0); HEMOGLOBIN 10.1 g/dL (12-16); MCH 29.8 pg (26.0-34.0); MCHC 33.4 g/dL (31.0-37.0); MCV 89.1 fL (80.0-100.0); MEAN PLATELET VOLUME 10.1 fL (7.4-10.4); RBC 3.39 10x6/uL (4.00-5.40); RDW 13.4 % (11.5-14.5); WBC 6.7 10x3/uL (4.8-10.8)
[2018-12-12 07:10] LABS: ALBUMIN 2.5 g/dL (3.4-5.0); ALKALINE PHOSPHATASE 123 U/L (46-116); BILIRUBIN - TOTAL 0.43 mg/dL (0.2-1.3); CALC OSMOLALITY 270 mosm/kg (275-300); CALCIUM 8.5 mg/dL (8.5-10.1); CARBON DIOXIDE 30.8 mmol/L (21.0-32.0); CHLORIDE - SERUM 98 mmol/L (98-107); CREATININE - SERUM 0.7 mg/dL (0.6-1.3); GLUCOSE 103 mg/dL (74-106); MAGNESIUM - SERUM 1.8 mg/dL (1.8-2.4); PHOSPHOROUS 3.3 mg/dL (2.5-4.9); POTASSIUM - SERUM 3.6 mmol/L (3.5-5.1); PROTEIN - SERUM 6.1 g/dL (6.4-8.2); SODIUM 136 mmol/L (136-145); UREA NITROGEN 9 mg/dL (7-18); eGFR NON AFRICAN AMERICAN > 90 mL/min (90-120)
[2018-12-12 07:11] LABS: ALT (SGPT) 31 U/L (10-68)
--- NOTE | 2018-12-12 10:55 | NUR ---
PT UP WALKING WITH PHYSICAL THERAPIST.
--- NOTE | 2018-12-12 11:13 | NUR ---
PT HAS JUST FINISHED WALK. WAS ON 2L FOR WALK. WHEN RETURNED TO CHAIR WAS 87% IMMEDIATELY. WITHIN 1 MINUTE WAS READING 93% ON ROOM AIR. QUICKLY FOLLOWED BY 97%. WALKED 1000 FEET UNAIDED AND WAS ABLE TO CARRY CONVERSATION WITH THERAPIST WITHOUT DISTRESS OR SHORTNESS OF BREATH.
[2018-12-12] MEDS ORDERED: ASPIRIN EC81 M1 PO (13:29)
[2018-12-12] MEDS ORDERED: COLACE100 MG PO (13:31)
[2018-12-12] MEDS ORDERED: PERCOCET 5-3251 TAB PO (13:32)
--- NOTE | 2018-12-12 13:53 | NUR ---
PT WALKED 1000FT WITH NURSE ON ROOM AIR. WHEN RETURNED TO CHAIR PT SATS 90%. 92% IN LESS THAN 1 MINUTE. BY THE TIME PT HAD ALL MONITORING BACK ON AND BLANKETS COVERING HER, SATS WERE 96% ON ROOM AIR.
--- NOTE | 2018-12-12 14:29 | NUR ---
Nutrition Follow-up: Pt reports good appetite/PO intake; hiccups resolved. Diet: Cardiac PO intake: 75% last night; eating lunch at time of visit Last BM: day of surgery per pt Labs noted: K+ 3.6, Alb 2.5 Meds noted: Micro-K, Colace Rec continue current diet as tolerated. Ensure Clear d/c'd per pt request. [place] food preferences within diet restrictions. RD following.
--- NOTE | 2018-12-12 16:23 | NUR ---
PIV TO LEFT AC REMOVED. DISCHARGE TEACHING PROVIDED TO PATIENT AND DAUGHTER. UNDERSTANDS FOLLOW UP PLAN. PRINTED PRESCRIPTION FOR PAIN MEDICATION PROVIDED BY COLLINS CHAN.
--- NOTE | 2018-12-14 20:30 | MORECARE ---
CASE MANAGEMENT DISCHARGE SUMMARY PATIENT: RASHAUN GALEANA ANN UNIT: [id number] ADM DATE: 12/07/18 AGE: 58 : 64 SEX: F [facility] AUTHOR: SHERRIE,DOC PHYSICIAN: REFERRING PHYSICIAN: CATHERINE AN MD DATE OF SERVICE: 12/14/18 Discharge Plan Patient Name: RASHAUN GALEANA Facility: [facility]:[place] : 1960 Planned Disposition: Home or Self Care Anticipated Discharge Date: Discharge Date: 12/12/2018 Expected LOS: Initial Reviewer: [email or web address] Initial Review Date: 12/10/2018 Generated: 12/14/18 9:30 pm Comments DCP- Discharge Planning Updated by [email or web address]: Jessenia Yoder on 12/11/18 4:[address] LATE ENTRY 12/10/18 @ 1630 Patient Name: RASHAUN GALEANA Admission Status: Elective Accout number: [id number] Admission Date: 12-07-2018 : 1960 Admission Diagnosis:NONRHEUMATIC AORTIC (VALVE) STENOSIS Attending: CATHERINE AN Current LOS: 4 Anticipated DC Date: Planned Disposition: Home or Self Care Primary Insurance: [place] [employer] [facility] Discharge Planning Comments: CM met with patient at bedside after explaining CM role and obtaining verbal consent. Patient lives at home alone and plans to return there upon discharge. Patient states that her daughter has taken off work to help her when discharged. Patient feels this would be a safe discharge. CM discussed availability / needs of home health and medical equipment. Patient denies any discharge needs at this time. Patient states she will have her daughter drive her home upon discharge. Patient will require qualifying ABG for home 02 if needed upon discharge d/t Medicaid guidelines. CM will continue to follow and assist as needed with discharge planning / needs. Sorting Supervisor: Jessenia Yoder DCPIA - Discharge Planning Initial Assessment Updated by [email or web address]: Jessenia Yoder on 12/11/18 5:33 pm * Is the patient Alert and Oriented? Yes * How many steps to enter\exit or inside your home? * PCP [facility] * Pharmacy [facility] * Preadmission Environment Home Alone * ADLs Independent * Equipment None * List name and contact numbers for known caregivers / representatives who currently or will assist patient after discharge: ANDREW GALEANA - DAUGHTER- [phone] HARMAN SAENZ - DAUGHTER - [phone] * Verbal permission to speak to the caregivers and representatives has been obtained from the patient. Yes * Community resources currently utilized None * Additional services required to return to the preadmission environment? No * Can the patient safely return to the preadmission environment? Yes * Has this patient been hospitalized within the prior 30 days at any hospital? No Last DP export: 12/11/18 4:40 pm Patient Name: RASHAUN GALEANA Page [phone] at 2030 All edits/amendments must be made on the electronic document DICTATION DATE: 12/14/182029 COMPUTER SYSTEMS TECHNICIAN: NATACHA 12/14/182029 RPT#: [id number] DC DATE:12/12/18 STATUS: DIS IN [facility] [address] [place] [address] END OF REPORT
== END 2018-12-12 16:24 | disposition home or self-care (01) | DRG 220 ==
LOC: D.SDCHOLD 12-05 09:30 → D.CVICU 12-07 05:00 → D.SDCHOLD 12-07 07:30 → D.CVICU 12-07 09:08 → D.SDCHOLD 12-07 10:00 → D.CVICU 12-12 16:24
PROVIDERS: ADMIT Thoracic Surgery (Cardiothoracic Vascular Surgery); ATTEND Thoracic Surgery (Cardiothoracic Vascular Surgery)
PROC: 5A1221Z Performance of Cardiac Output, Continuous (ICD-10-PCS; 2018-12-07)
PROC: 02RF0JZ Replacement of Aortic Valve with Synthetic Substitute, Open Approach (ICD-10-PCS; principal; 2018-12-07 07:30)
DX: I35.0 Nonrheumatic aortic (valve) stenosis (principal); D62 Acute posthemorrhagic anemia; E87.1 Hypo-osmolality and hyponatremia; J90 Pleural effusion, not elsewhere classified; I95.9 Hypotension, unspecified; F17.200 Nicotine dependence, unspecified, uncomplicated

== ENCOUNTER → 2018-12-17 09:13 | Outpatient (CLI) | payer MEDICAID ==
[2018-12-10 13:58] VITALS: BMI 28.9
[~2018-12-17 09:13] MED LIST changes: +ASPIRIN EC81 M1 PO; +AUGMENTIN 875-11 TAB PO; +COLACE100 MG PO; +FLINTSTONES WIT18 MG PO; +HYDROCODON-ACE1 EAC7 PO; +MAGNESIUM OXID250 MG PO; +PERCOCET 5-3251 TAB PO
== END | disposition home or self-care (01) ==
LOC: D.LAB 09:13
PROVIDERS: ATTEND Thoracic Surgery (Cardiothoracic Vascular Surgery)
DX: I35.0 Nonrheumatic aortic (valve) stenosis (principal)

== ENCOUNTER 2018-12-31 17:39 | Emergency (ER) | payer MEDICAID ==
[~2018-12-31] VITALS: Ht 154.9 cm; Wt 50.0 kg
[~2018-12-31 17:39] MED LIST changes: -AUGMENTIN 875-11 TAB PO; -HYDROCODON-ACE1 EAC7 PO
[2018-12-31 17:49] VITALS: Ht 154.9 cm; Wt 50.0 kg
[2018-12-31 18:11] LABS: BASOPHILS 0.2 % (0-2); HEMATOCRIT 36.3 % (36.0-48.0); HEMOGLOBIN 12.8 g/dL (12-16); IMMATURE GRANULOCYTES 0.2 % (0-5); MCH 30.5 pg (26.0-34.0); MCHC 35.3 g/dL (31.0-37.0); MCV 86.6 fL (80.0-100.0); MEAN PLATELET VOLUME 10.2 fL (7.4-10.4); MONOCYTES 11.1 % (2-11); NEUTROPHILS 70.5 % (40-80); RBC 4.19 10x6/uL (4.00-5.40); WBC 8.9 10x3/uL (4.8-10.8)
[2018-12-31 18:14] LABS: PLATELET COUNT 613 10x3/uL (130-400)
[2018-12-31 18:28] LABS: ALBUMIN 3.3 g/dL (3.4-5.0); ALKALINE PHOSPHATASE 96 U/L (46-116); ALT (SGPT) 14 U/L (10-68); CALC OSMOLALITY 267 mosm/kg (275-300); CALCIUM 9.5 mg/dL (8.5-10.1); CARBON DIOXIDE 26.4 mmol/L (21.0-32.0); CHLORIDE - SERUM 97 mmol/L (98-107); CREATININE - SERUM 0.8 mg/dL (0.6-1.3); GLUCOSE 109 mg/dL (74-106); SODIUM 134 mmol/L (136-145); UREA NITROGEN 11 mg/dL (7-18); eGFR NON AFRICAN AMERICAN 78 mL/min (90-120)
[2018-12-31 19:15] LABS: APPEARANCE CLEAR (CLEAR); COLOR YELLOW (YELLOW)
[2018-12-31 19:16] LABS: BILIRUBIN NEGATIVE (NEGATIVE); GLUCOSE NEGATIVE (NEGATIVE); KETONE NEGATIVE (NEGATIVE); NITRITE NEGATIVE (NEGATIVE); PROTEIN NEGATIVE (NEGATIVE); SPECIFIC GRAVITY 1.015 (1.005-1.020); UROBILINOGEN NORMAL (NORMAL)
[2018-12-31 19:17] LABS: BACTERIA FEW /hpf (NONE SEEN); RED CELLS - URINE OCC /hpf (0-5); WHITE CELLS - URINE 0-5 /hpf (0-5)
[2018-12-31] MEDS ORDERED: AUGMENTIN 875-11 TAB PO (22:59)
[2018-12-31 23:57] VITALS: BP 95/59
== END 2018-12-31 23:58 | disposition home or self-care (01) ==
LOC: D.ER 17:39
PROVIDERS: Emergency Medicine; Family Medicine
DX: J90 Pleural effusion, not elsewhere classified (principal); J18.9 Pneumonia, unspecified organism

== ENCOUNTER 2019-01-03 07:24 | Outpatient (CLI) | payer MEDICAID ==
[~2019-01-03] VITALS: Ht 154.9 cm; Wt 57.7 kg
[~2019-01-03 07:24] MED LIST changes: +AUGMENTIN 875-11 TAB PO
[2019-01-03] MEDS ORDERED: HYDROCODON-ACE1 EAC7 PO (08:29)
[2019-01-03 08:31] VITALS: BP 131/85; Ht 154.9 cm; Wt 57.7 kg
[2019-01-03 10:52] LABS: EOS BF 3 %; MACROPHAGES BF 25 %; MESOTHELIALS BF 5 %; NEUT - BF 40 %
--- NOTE | 2019-01-04 08:44 | OP ---
PATIENT NAME: RASHAUN GALEANA MEDICAL RECORD: [id number] :64 LOCATION:D.OPS ADMISSION DATE: SURGEON: CATHERINE AN MD DATE OF OPERATION: 01/03/2019 SURGEON: Catherine An MD INTELLIGENCE MANAGER: None. PROCEDURE: Ultrasound-guided right thoracentesis. DESCRIPTION OF PROCEDURE: With the patient seated upright and with a heart rate, blood pressure, and pulse oximetry monitor the right posterior chest was imaged and a window for aspiration was obtained for the right pleural effusion. Posterior chest was sterilely prepped and draped. A 1% Xylocaine used for local anesthetic and effusion was localized with a small needle. A 2 mm skin incision was made. The thoracentesis catheter was inserted easily into the pleural cavity. A total of 700 cc of serous fluid were removed without difficulty. Fluid sent for cultures and cell count and catheter was removed. There was no residual fluid. No apparent complications. The patient was taken for chest x-ray. TRANSINT:[id number] Voice Confirmation ID: [id number] DOCUMENT ID: [id number] CATHERINE AN MD at 0844 CC: [id number] DICTATION DATE: 01/03/19 1637 FLOUR MIXER HELPER: 01/03/19 2219 [facility] CLI 01/03/19 [place] [address] [place] [address]
== END 2019-01-03 11:25 | disposition home or self-care (01) ==
LOC: D.OPS 07:24
PROVIDERS: ATTEND Thoracic Surgery (Cardiothoracic Vascular Surgery)
DX: J90 Pleural effusion, not elsewhere classified (principal)

== ENCOUNTER → 2019-01-16 09:28 | Outpatient (CLI) | payer MEDICAID ==
[2019-01-03 08:31] VITALS: BMI 24.0
[~2019-01-16 09:28] MED LIST changes: +HYDROCODON-ACE1 EAC7 PO
== END | disposition home or self-care (01) ==
LOC: D.RAD 09:28
PROVIDERS: ATTEND Thoracic Surgery (Cardiothoracic Vascular Surgery)
DX: I35.0 Nonrheumatic aortic (valve) stenosis (principal)